=== PATIENT | female | born 1970 | race Caucasian/White ===

== ENCOUNTER → 2024-12-23 15:21 | Outpatient (CLI) | payer OTHER, SELFPAY ==
[2024-12-23 15:39] LABS: Appearance Urine UA CLEAR; Bilirubin Urine UA 1+ (NEGATIVE); Color Urine UA YELLOW; Glucose Urine UA NEGATIVE (Negative); Ketones Urine UA NEGATIVE (NEGATIVE); Leukocyte Esterase Urine UA NEGATIVE (NEGATIVE); Nitrite Urine UA NEGATIVE (Negative); Occult Blood Urine UA 2+ (Negative); Protein Urine UA NEGATIVE (Negative); Specific Gravity Urine UA 1.025 (1.000-1.035); Urobilinogen Urine UA 1.0 E.U./dL (0.2)
[2024-12-23 15:44] LABS: pH Urine UA 6.0 (4.5-8.0)
[2024-12-23 15:47] LABS: Culture Indicated Urine Cult Not Indicated
[2024-12-23 15:50] LABS: Ictotest Urine Negative (Negative)
== END ==
PROVIDERS: PCP Family Medicine; Visit Provider Obstetrics & Gynecology Gynecology
DX: R32 Unspecified urinary incontinence (principal)
CPT/HCPCS: 81001